=== PATIENT | male | born 1990 | race Two or more races ===

== ENCOUNTER 2022-01-22 07:43 | Emergency (ER) | payer SELFPAY ==
[2022-01-22] MEDS ORDERED: Lidocaine 1% 5 ML VIAL INFILT ONE (07:44)
[2022-01-22] MEDS ORDERED: Diphtheria,Pertussis(Acell),Tetanus Vaccine 0.5 ML Syringe IM ONE (08:23)
== END 2022-01-22 08:52 | disposition home or self-care (01) ==
LOC: FB.ED 07:43
DX: S61.012A Laceration without foreign body of left thumb without damage to nail, initial encounter (principal); F17.210 Nicotine dependence, cigarettes, uncomplicated; Z23 Encounter for immunization; W26.8XXA Contact with other sharp object(s), not elsewhere classified, initial encounter
CPT/HCPCS: 12001; 90471; 90715; 99282-25